=== PATIENT | male | born 2000 | race Caucasian/White ===

== ENCOUNTER 2024-10-25 15:22 | Emergency (ER) | payer OTHER, SELFPAY ==
[2024-10-25 15:23] VITALS: BP 150/88; PULSE 93; RESP 16; TEMP 36.8; O2SAT 99; BMI 27.0
[2024-10-25 15:48] VITALS: O2SAT 100
--- NOTE | 2024-10-25 15:48 | CT_ITS ---
PROCEDURE: CHEST WITH CONTRAST (CTCHW), N/A REASON FOR EXAM: TRAUMA (STERNUM) AND LOOK AT THORACIC SPINE TECHNIQUE: CT chest was performed with IV contrast. Multiplanar reformats were generated. CONTRAST: 100 mL Isovue 370. COMPARISON: Unavailable FINDINGS: Note that evaluation of the vasculature, lilo, and soft tissues is limited in the absence of IV contrast. Mild motion limitation. Heart/pericardium: Heart size normal. No pericardial effusion. Trace retrosternal hematoma underlying sternal fractures. Aorta: Unremarkable. Pulmonary arteries: Unremarkable. Lymph nodes: Unremarkable. Lungs/pleura: Minimal dependent atelectasis/scarring. Airways: Unremarkable. Chest wall: Unremarkable. Upper abdomen: Partially imaged 7 mm hypervascular right lobe hepatic lesion. Partially imaged presumed right renal cyst. Musculoskeletal: Suspected nondisplaced midly depressed upper sternal fracture. Superior endplate fractures involving T6 and T7 anteriorly, with roughly 10% loss of vertebral body height. CT/Chest WITH Contrast IMPRESSION: 1. Suspected nondisplaced mildly depressed upper sternal fracture. Trace retro sternal hematoma. 2. Superior endplate fractures involving T6 and T7 anteriorly with roughly 10% loss of vertebral body height. 3. Partially imaged indeterminate at least 7 mm hypervascular RIGHT lobe hepati c lesion could reflect an FNH or flash filling hemangioma however this is not definite. If there is history of known malignan cy, recommend outpatient multiphase hepatic protocol MRI with and without contrast, otherwise outpatient ultrasound could b e considered although this may be difficult to visualized due to small size. 4. Additional description as above. Findings in impressions #1-2 were discussed by telephone with Selvin UMRPHY at 3:06 pm [facility] on 10/25/2024. Reading Location: [id number]
--- NOTE | 2024-10-25 15:53 | EDS_ITS ---
HPI HPI - Fall History of Present Illness Chief Complaint: Fall Informant: patient and parent Occured/Mechanism Occurred: Today Fall from Height (ft): Fell from a roof about 14 feet to the ground. Usually ambulates: Without assistance Pain/Injury Pain Location: chest and back Quality of Pain: Sharp Current Severity: Moderate Maximum Severity: Moderate Associated Symptoms Associated Symptoms: Negative for Parasthesias, Weakness, Loss of function, Inability to ambulate, Loss of consciousness or Amnesia Narrative Narrative: 24-year-old male biological that identifies as a female. Goes by the name Tish. Patient was tarring a roof at home. 12 to 14 feet from the roof to the ground. Landed on dirt. Denies any LOC. No blood thinners. Planing of pain to his anterior chest wall and sternum in his mid thoracic spine. No weakness. No numbness. No abdominal pain. No shortness of breath. No headache. No neck pain. Prior similar symptoms: No Recent Illness/Hospitalization: No PFSH PFSH Medical History no medical history no medical history Allergy/AdvReac Type Severity Reaction Status Date / Time No Known Allergies Allergy Verified 10/25/24 15:26 Social History Smoking Status: Never smoker ROS ROS ED ROS Narrative Denies recent illness other than a URI. Constitutional Constitutional ED: Denies chills or fever(s) Eyes Eyes: Denies blurry vision or change in vision ENT ENT ED: Reports rhinorrhea; Denies ear pain or sore throat Cardiovascular Cardiovascular: Denies chest pain Respiratory/Chest Respiratory/Chest: Denies cough or dyspnea Gastrointestinal Gastrointestinal: Denies abdominal pain Genitourinary Genitourinary ED: Denies dysuria or hematuria Musculoskeletal Musculoskeletal: Reports back pain; Denies arthralgias Integumentary Denies abscess or Abrasions Neurologic Neurologic: Denies headache(s) Psychiatric Psychiatric: Denies anxiety Endocrine Endocrinology: Denies polydipsia Hematologic/Lymphatic Hematologic/Lymphatic: Denies easy bleeding, easy bruising or lymphadenopathy Allergic/Immunologic Allergic/Immunologic ED: Denies mouth swelling, tongue swelling or urticaria EXAM Physical Exam Narrative Exam Narrative: 24-year-old biological male identifies as a female. Vital signs are stable afebrile. Pulse ox 9 9% on room air no signs hypoxia. Both parents present in room. H EENT exam pupils round react to light. Extra motions are intact. Face nontender no bruising no swelling. Dentition intact. No malocclusion. Scalp and head nontender no hematoma. No lacerations. No abrasions. C-spine anterior neck nontender. Lungs clear to auscultation bilaterally. Heart regular rhythm no murmur. Mild anterior sternal tenderness. But no ecchymosis or bruising no subcu air or crepitus. Ribs nontender. Back mid thoracic spine mild tenderness. No ecchymosis or bruising. No abrasion. Otherwise the posterior ribs lumbar spine and neck are completely nontender. Pelvic girdle intact. Moving all 4 extremities. Normal range of motion. Normal strength. Normal sensation. 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 Able to raise both arms over the head. Full flexion-extension of lower extremities. Dorsi plantarflexion intact. Normal sensation. Neurologically patient is awake and alert. Answer questions following commands. GCS of 15. No focal motor or sensory deficits. Const Vital Signs: 10/25/24 15:23 10/25/24 15:48 10/25/24 17:23 Temperature 98.3 F Temperature Source Oral Pulse Rate 93 78 Respiratory Rate 16 16 Respiratory Effort Normal Non-Labored Respiratory Depth Normal Respiratory Pattern Normal Blood Pressure 150/88 H 128/78 H Blood Pressure Mean 108 94 Pulse Ox 99 100 98 Oxygen Delivery Method Room Air Room Air Positive well nourished and well developed; Negative for cachectic, contractures or unkempt General Appearance ED: well developed; Negative for unkempt, cachectic or contractures Nutritional Appearance: Negative for cachectic HEENT Reports normocephalic atraumatic; Negative for trauma, contusion, hematoma or tenderness Eyes PERRL and EOMs intact bilaterally General Eye ED: Negative for pale conjunctiva, scleral icterus or other Neck full ROM, no lymphadenopathy and supple General: Negative for tenderness Chest Wall inspection of chest normal; Negative for palpation of chest normal Chest Narrative: Mild midsternal tenderness. No ecchymosis or bruising. No subcu air or crepitus. Resp normal respiratory effort, no retractions and clear to auscultation bilaterally Auscultation: Negative for rales, rhonchi, wheezes or diminished lung sounds Cardio regular rate, regular rhythm, S1 normal heart sound, S2 normal heart sound and no murmurs Rate: Negative for bradycardia or tachycardic Rhythm: Negative for abnormal rhythm GI non-tender, non-distended and no masses Inspection: Negative for abdominal distention Auscultation: normoactive bowel sounds Palpation: soft; Negative for guarding or rebound tenderness present Back/Spine no CVA tenderness General Back: Negative for CVA tenderness Cervical Spine: Negative for cervical spine tenderness Thoracic Spine / Upper Back: thoracic spinal tenderness; Negative for ROM limited or pain with ROM Lumbar Spine / Lower Back: Negative for lumbar spinal tenderness or paraspinal muscle tenderness Neuro oriented x3, CN's II-XII intact bilaterally, moves all extremities, no focal motor deficits and no sensory deficits noted [place] Coma Scale: document GCS findings Spontaneous Obeys Commands Oriented 15 Sensorium / Orientation: alert, oriented to person, oriented to place and oriented to time; Negative for orientation impaired, confused, lethargic or stuporous Motor Exam: strength 5/5 throughout Psych mental status grossly normal and thought process normal Appearance: Negative for unkempt Attitude: No agitated Mood & Affect: Negative for depressed, anxious or tearful Skin General Skin Exam: Negative for other Lesions: no lesions Rashes: no rashes Trauma: Negative for abrasion, laceration or puncture MDM MDM MDM Narrative Medical decision making narrative: 24-year-old male identifies as a female fell about 12 to 14 feet from a roof complaining of mid thoracic and mid sternal pain. CT chest being obtained. With IV contrast. Patient was offered did not waiting for pain. Completely neurologically intact. No signs of trauma to the face scalp or neck and do not think needs a head CT or a CT of the C-spine. Radiologist called home and the patient had a subtle sternal fracture with a small hematoma and also a thoracic fracture. On repeat exam patient is doing well unchanged. I am adding an additional CT head, C-spine and abdomen pelvis due to distracting injuries. And I will speak to a trauma center. Patient doing well repeat exam at 6:17 PM. Due to his injuries he will be transferred to [facility]. Most likely admitted and observed overnight. He remains to be awake and alert. GCS of 15. He has not required or wanted anything for pain. Awaiting a few of his CAT scans. I will obtain an EKG due to the sternal fracture. I have spoken to [facility]'s ER and they are awaiting the transfer I will go by local ground squad. History & Record Review Discussion w/independent historian: Patient and Family Additional record(s) reviewed:: No prior records Lab Data Attestation: I reviewed the patient's lab results. Lab results narrative: White count of 14.5. H&H 14 and 41. PT/INR of 13 and 1. Electrolytes show an anion gap of 8. Normal BUN and creatinine. Normal liver enzymes. Labs: Laboratory Results - last 24 hr 10/25/24 17:19 WBC 14.5 H RBC 4.68 Hgb 14.3 Hct 41.4 MCV 88.5 MCH 30.6 MCHC 34.5 RDW Std Deviation 41.6 RDW Coeff of Lele 12.7 Plt Count 296 MPV 10.1 Immature Gran % (Auto) 0.600 Neut % (Auto) 88.1 H Lymph % (Auto) 5.7 L [place] % (Auto) 5.1 Eos % (Auto) 0.3 Baso % (Auto) 0.2 Absolute Neuts (auto) 12.8 H Absolute Lymphs (auto) 0.83 Nucleated RBC % 0 PT 13.4 INR 1.0 Sodium 138 Potassium 4.2 Chloride 105 Carbon Dioxide 24.0 Anion Gap 8 BUN 16 Creatinine 1.00 Estim Creat Clear Calc 137.31 Est GFR (MDRD) Non-Af 108 BUN/Creatinine Ratio 15.9 Glucose 105 H Calcium 9.3 Total Bilirubin 0.25 AST 26 ALT 22 Alkaline Phosphatase 83 Total Protein 6.8 Albumin 4.1 Globulin 2.7 Albumin/Globulin Ratio 1.5 Radiography Diagnostic Testing: Clinical Impression(s) from Imaging Studies Chest CT 10/25/24 15:48 IMPRESSION: 1. Suspected nondisplaced mildly depressed upper sternal fracture. Trace retrosternal hematoma. 2. Superior endplate fractures involving T6 and T7 anteriorly with roughly 10% loss of vertebral body height. 3. Partially imaged indeterminate at least 7 mm hypervascular RIGHT lobe hepatic lesion could reflect an FNH or flash filling hemangioma however this is not definite. If there is history of known malignancy, recommend outpatient multiphase hepatic protocol MRI with and without contrast, otherwise outpatient ultrasound could be considered although this may be difficult to visualized due to small size. 4. Additional description as above. Findings in impressions #1-2 were discussed by telephone with Selvin MURPHY at 3:06 pm [facility] on 10/25/2024. Reading Location: [facility] Cervical Spine CT 10/25/24 17:09 IMPRESSION: 1. No cervical spinal fracture or acute malalignment identified. 2. Partially imaged sphenoid paranasal sinus disease better depicted on separately dictated CT head. 3. Additional description as above. Reading Location: [facility] Rhythm Strip Rhythm Strip: Sinus Rhythm Rate: 88 Ectopy: None EKG Initial EKG: Attestation: I personally reviewed and interpreted this EKG as follows: Interpretation: Sinus Rhythm and No Acute Injury Pattern Comments: Sinus rhythm rate 88. Incomplete right bundle branch block. No acute signs of [place] nor ischemia. No dysrhythmia. Discharge Plan Triage Chief Complaint: Fall ED Provider: Darci Montalvo Dx/Rx/DC Orders Clinical Impression: Fall from roof, Sternal fracture, Closed fracture of T6 vertebra, Closed T7 fracture Primary Care Provider: Xin Chavez Referrals: Xin Chavez MD [Primary Care Provider] - Print Language: Liberian Disposition Disposition: Acute Care Hospital
--- NOTE | 2024-10-25 17:09 | CT_ITS ---
PROCEDURE: SPINE CERVICAL WITHOUT CONTRAS (CTSPC), 10/25/2024 REASON FOR EXAM: FELL 14 FEET COMPARISON: None TECHNIQUE: CT cervical spine was performed without IV contrast. Multiplanar reformats were generated. IV Contrast: None. FINDINGS: No cervical spinal fracture or acute malalignment identified. Straightening of the normal cervical lordosis could be positional or related to pain/muscular spasm. Trace cervicothoracic dextroscoliosis may also be positional. Vertebral body heights are preserved. No high grade bony foraminal or spinal canal stenoses evident by CT. Mild disc bulging at C4-C5. Partially imaged sphenoid paranasal sinus disease better depicted on separately dictated CT head. Mild debris within the vallecula. CT/Spine Cervical without Contras IMPRESSION: 1. No cervical spinal fracture or acute malalignment identified. 2. Partially imaged sphenoid paranasal sinus disease better depicted on separat jeremiah dictated CT head. 3. Additional description as above. Reading Location: [facility]
--- NOTE | 2024-10-25 17:09 | CT_ITS ---
EXAM: CT images of the brain were acquired without intravenous contrast. Multiplanar reformats were acquired. COMPARISON: None available. FINDINGS: * ACUTE: No acute infarct or hemorrhage. No mass effect or herniation. * BRAIN PARENCHYMA: Signal intensities are within normal limits for age. * VENTRICLES/EXTRA-AXIAL SPACES: No hydrocephalus or extra-axial fluid collections. * EXTRACRANIAL STRUCTURES: Visualized osseous structures are normal. Soft tissues are normal. Mild paranasal sinus mucosal thickening. CT/Brain/Head without Contrast IMPRESSION: No acute intracranial findings. CLINICAL HISTORY: TRAUMA FELL 14 FEET Reading [facility]
--- NOTE | 2024-10-25 17:09 | CT_ITS ---
PROCEDURE: ABDOMEN/PELVIS W IV CONT ONLY 10/25/2024 REASON FOR EXAM: FELL 14 FEET FROM ROOF TECHNIQUE: Abdomen CT without and with intravenous contrast. Coronal and Sagittal reconstruction series were provided. PATIENT PREPARATION: Per protocol ORAL CONTRAST TYPE: None. CONTRAST: Isovue 370 VOLUME: 75mL One or more dose reduction techniques were used (e.g., Automated exposure control, adjustment of the mA and/or kV according to patient size, use of iterative reconstruction technique. RADIATION DOSE SUMMARY: CTDlvol: 17.96 mGy DLP: 1019.12 mGycm COMPARISON: None. FINDINGS: Lung bases: Better evaluated on concurrent CT chest, reported separately. Liver: Previously seen hypervascular structure at the junction of the right lobe and caudate nonvisualized, possibly on a technical basis due to the phase of contrast. Mild likely focal steatosis along the anterior falciform. Spleen: Unremarkable. Gallbladder: Unremarkable. Pancreas: Unremarkable. Adrenals: Unremarkable. Kidneys: Cysts and additional tiny hypodensities too small to characterize, likely cysts. Excreted contrast in the collecting systems and ureters, from previous CT scanning, sensitivity for calculus. Bowel: Unremarkable. Normal caliber appendix. Lymph nodes: Unremarkable. Vasculature: Unremarkable. Peritoneum: Unremarkable. Bladder: Opacified by excreted contrast, otherwise unremarkable. Reproductive Organs: Unremarkable. Body Wall: Unremarkable. Bones: Lumbar dextroscoliosis.. CT/Abdomen/Pelvis W IV Cont ONLY IMPRESSION: 1. No acute findings. 2. Additional description as above. Reading Location: [id number]
[2024-10-25 17:23] VITALS: BP 128/78; PULSE 78; RESP 16; O2SAT 98
[2024-10-25 17:29] LABS: Absolute Lymphocyte Count 0.83 X10^3/uL (0.83-4.51); Absolute Neutrophil Count 12.8 X10^3/uL (2.0-7.7); Basophil# 0.03 X10^3/uL; Basophil% 0.2 % (0-1); Eosinophil# 0.04 X10^3/uL; Eosinophils% 0.3 % (0-5); Hematocrit 41.4 % (40-54); Hemoglobin 14.3 g/dL (13.0-16.5); Lymphocyte # 0.83 X10^3/ul (0.83-4.51); Lymphocyte % 5.7 % (19-41); Mean Corp Hgb Conc 34.5 g/dL (32-36); Mean Corpuscular Hgb 30.6 pg (27.0-32.0); Mean Corpuscular Volume 88.5 fL (80-94); Mean Platelet Vol. 10.1 fl (6.2-12.0); Monocyte# 0.74 X10^3/uL; Monocyte% 5.1 % (0-10); NRBC Flagged by Analyzer 0 % (0-5); Neutrophil # 12.77 X10^3/uL (2.7-7.7); Neutrophil % 88.1 % (47-70); Platelet Count 296 K/mm3 (150-450); RBC Distribution Width CV 12.7 % (11.6-14.6); RBC Distribution Width SD 41.6 fl (35.1-43.9); Red Blood Count 4.68 M/mm3 (4.6-6.2); White Blood Count 14.5 K/mm3 (4.4-11.0)
[2024-10-25 17:41] LABS: Prothrombin Time (Protime)PT. 13.4 SECONDS (11.7-14.9)
[2024-10-25 17:48] LABS: ALB/GLOB Ratio 1.5 RATIO (0.9-2.4); AST(SGOT) 26 U/L (<=37); Alanine Aminotransfer ALT/SGPT 22 U/L (<=46); Albumin, Serum 4.1 g/dL (3.5-5.0); Alkaline Phosphatase 83 U/L (40-129); Anion Gap 8 (5-15); BUN 16 mg/dL (4-19); BUN/Creat Ratio 15.9 RATIO (10-20); Calcium,Total 9.3 mg/dL (7.6-11.0); Chloride 105 mmol/L (98-108); EST Glomerular Filtration Rate 108 (>60); Estimated Creatinine Clearance 137.31 ml/min (50-250); Globulin 2.7 g/dL (2.2-4.2); Glucose 105 mg/dL (70-99); Potassium 4.2 mmol/L (3.3-5.1); Protein, Total 6.8 g/dL (5.9-8.4); Sodium Level 138 mmol/L (133-145); Total Bilirubin 0.25 mg/dL (0.00-1.30)
--- NOTE | 2024-10-25 18:23 | ED.RN ---
ACCEPTED AT [facility] @[address]ANNA SILVA FOR PICKUP [id number]
--- NOTE | 2024-10-25 18:24 | EKG12_ITS ---
Test Reason : DYSRHYTHMIA Blood Pressure : */* mmHG Vent. Rate : 88 BPM Atrial Rate : 88 BPM P-R Int : 152 ms QRS Dur : 96 ms QT Int : 342 ms P-R-T Axes : 61 72 52 degrees QTcB Int : 413 ms Normal sinus rhythm Incomplete right bundle branch block Borderline ECG Confirmed by VIVIANE MURPHY, MADDY ([id number]), fan mail editor JEB HUERTA ([id number]) on 10/28/2024 10:56:55 AM Referred By: Confirmed By: MADDY PAN MD
[2024-10-25 19:00] VITALS: BP 128/78; PULSE 78; RESP 16; TEMP 36.6; O2SAT 98
== END 2024-10-25 19:03 | disposition short-term general hospital (02) ==
PROVIDERS: Emergency Provider Emergency Medicine; PCP Pediatrics; Visit Provider Emergency Medicine
DX: S22.059A Unspecified fracture of T5-T6 vertebra, initial encounter for closed fracture (principal); S22.069A Unspecified fracture of T7-T8 vertebra, initial encounter for closed fracture; S22.20XA Unspecified fracture of sternum, initial encounter for closed fracture; F64.0 Transsexualism; I45.10 Unspecified right bundle-branch block; W13.2XXA Fall from, out of or through roof, initial encounter
CPT/HCPCS: 70450; 71260; 72125; 74177; 80053; 85025; 85610; 93005; 99285; Q9967; A4216